=== PATIENT | female | born 1970 | race Caucasian/White ===

== ENCOUNTER 2021-04-12 09:49 | Day surgery (SDC) | payer OTHER ==
[~2021-04-12] VITALS: Ht 172.7 cm; Wt 53.5 kg
[~2021-04-12 09:49] MED LIST: ALBU90OI INH; CHLO25 PO; CODACE30 PO; CRUTCH3 USE; CYCL10 PO; GABA100 PO; HYDACE5 PO; HYDMOR2 PO; LISI10 PO; LISI20 PO; NAPR375 PO; NAPR500 PO; NITR100CA PO; NORCO; ONDA4ODT MM; OXYACE5T PO; OXYACE7.5T PO; PRED20 PO; PROM25 PO; RANI150 PO; RXHYDMOR2 PO; SUCR1SU PO; SULTRIDS PO; TRAM50 PO
--- NOTE | 2021-04-12 16:06 | NUR ---
04/12/21 0464 LEFTY ROSARIO PT STATES HER PAIN IS TOLERABLE AND READY TO DC HOME
== END 2021-04-12 15:55 | disposition home or self-care (01) ==
LOC: ORSCSDS 09:49
PROVIDERS: Orthopaedic Surgery
PROC: 0PSH04Z Reposition Right Radius with Internal Fixation Device, Open Approach (ICD-10-PCS; principal; 2021-04-12 11:45)
DX: S52.101A Unspecified fracture of upper end of right radius, initial encounter for closed fracture (principal); F17.210 Nicotine dependence, cigarettes, uncomplicated; I10 Essential (primary) hypertension; B19.20 Unspecified viral hepatitis C without hepatic coma
CPT/HCPCS: A9270; C1713; J0171; J1100; J2250; J2405; J2704; J3010; J7040; J7120